=== PATIENT | female | born 1965 | race Caucasian/White ===

== ENCOUNTER 2021-06-17 10:36 | Inpatient (IN) | payer BC, OTHER ==
[2021-06-17] MEDS ORDERED: Sodium Chloride 0.9% 2.5 ML Syringe FLUSH PRN (10:41)
[2021-06-17] MEDS ORDERED: Sodium Chloride 0.9% 10 ML Syringe FLUSH PRN (10:41)
[2021-06-17] MEDS ORDERED: Albuterol/Ipratropium 3.0-0.5 MG/3 ML Neb Soln NEB ONE ×5 (10:44→14:49)
--- NOTE | 2021-06-17 10:58 | PCM.EKG ---
#1 Interpretation EKG Date: 06/17/21 Time: 10:48 Rhythm: NSR Rate (Beats/Min): 103 [place]: Normal P-Wave: Present QRS: Normal ST-T: Normal QT: Normal [place]/PQ Interval: 189 EKG Interpretation Comments: sinus tachycardia, no acute ischemic changes
[2021-06-17] MEDS ORDERED: Dexamethasone 10 MG/ML SDV IVPUSH ONE (11:06)
[2021-06-17] MEDS ORDERED: Magnesium Sulfate (4.06 MEQ/ML) 5 GM/10 ML SDV IV STA (11:12)
[2021-06-17 11:16] LABS: BLOOD UREA NITROGEN,BUN 22 mg/dL (7.0-18.0); CARBON DIOXIDE,CO2 28.7 mmol/L (21.0-32.0); CHLORIDE,CL 99 mmol/L (98-107); GLUCOSE RANDOM 146 mg/dL (74-106); LIPASE 15 U/L (73-393); POTASSIUM,K 3.7 mmol/L (3.5-5.1); SODIUM,NA 137 mmol/L (136-145)
[2021-06-17] MEDS ORDERED: Magnesium Sulfate/Water 2 GM in Premix Bag 1 BAG IV ONE (11:45)
--- NOTE | 2021-06-17 12:21 | EDM.PDOC ---
ED HPI GENERAL MEDICAL PROBLEM - General Chief Complaint: Respiratory Problem Stated Complaint: WHEEZING SOB Time Seen by Provider: 06/17/21 10:41 Source of Information: Reports: Patient History Limitations: Reports: No Limitations - History of Present Illness INITIAL COMMENTS - FREE TEXT/NARRATIVE: HISTORY AND PHYSICAL: History of present illness: Patient is a 55-year-old female, with a history of asthma, hypertension, and obesity, who presents emergency room today with concern of shortness of breath and cough x2 days. Patient states that starting last night, her cough was more significant leading her to be more short of breath today. Patient states that she did have a negative Covid test rapid when symptoms first started but states that she is still waiting for the state send out to result. Patient states that her chest feels tight like she cannot take a deep breath in and similar to past asthma exacerbations. Patient states she has not taken anything for her symptoms and denies any other symptoms or concerns. Patient is vaccinated for COVID-19 with [place] and has received both doses. Patient denies fever, chills, chest pain. Denies headache, neck stiff ness, change in vision, syncope, or near syncope. Denies nausea, vomiting, abdominal pain, diarrhea, constipation, or dysuria. Has not noted any blood in urine or stool. Patient has been eating and drinking appropriately. Review of systems: As per history of present illness and below otherwise all systems reviewed and negative. Past medical history: As per history of present illness and as reviewed below otherwise noncontributory. Surgical history: As per history of present illness and as reviewed below otherwise noncontributory. Social history: See social history for further information Family history: As per history of present illness and as reviewed below otherwise noncontributory. Physical exam: General: Patient is alert, oriented, and in no acute distress. Patient laying on exam table, patient is in moderate respiratory distress with a respiratory rate of 26, oxygen on room air 82%, and tachycardic 110s on exam, afebrile.. HEENT: Atraumatic, normocephalic, pupils equal and reactive bilaterally, negative for conjunctival pallor or scleral icterus, mucous membranes moist, throat clear, neck supple, nontender, trachea midline. No drooling or trismus noted. No meningeal signs. No hot potato voice noted. Lungs: Decreased air exchange bilaterally to auscultation, breath sounds equal bilaterally, chest nontender. Patient speaking 3-4 words with breathlessness, no wheezing or stridor, accessory muscle use with moderate respiratory distress. Heart: S1S2, regular rate and rhythm without overt murmur Abdomen: Soft, nondistended, nontender. Negative for masses or hep atosplenomegaly. Negative for costovertebral tenderness. Pelvis: Stable nontender. Genitourinary: Deferred. Rectal: Deferred. Skin: Intact, warm, dry. No lesions or rashes noted. Extremities: Atraumatic, negative for cords or calf pain. Neurovascular unremarkable. Neuro: Awake, alert, oriented. Cranial nerves II through XII unremarkable. Cerebellum unremarkable. Motor and sensory unremarkable throughout. Exam nonfocal. Notes: Patient is a 55-year-old female, with a history of asthma, hypertension, and obesity, who presents emergency room secondary to cough and worsening shortness of breath x2 days. Upon arrival to the ED, patient is in moderate respiratory distress with an increased respiratory rate of 26 with hypoxia on room air of 82 and tachycardic 110s on exam. Patient was quickly transitioned over to 5 L nasal cannula and satting about 92%. Patient does have decreased air exchange bilaterally without wheezing or stridor and is speaking 3-4 words with breathlessness on exam and a sensory muscle use. DuoNeb initiated immediately upon arrival to the ED. We will also provide a dose of steroid, obtain cardiac evaluation, and closely reassess patient. Following continuous DuoNeb, patient has improvement of his oxygenation about 93% on 5 L nasal cannula. Patient's respiratory rate has improved to about 20, and tachycardia has resolved to the 90s. See Dr. Hayes's dictation for specific EKG interpretation. However, sinus tachycardia with a rate of 103 without STEMI. CBC remarkable for an elevated white blood cell count at 15.14, otherwise mild derangements of CBC are unremarkable. CMP shows an isolated BUN of 22 and glucose mildly elevated at 146, otherwise mild derangements of CMP unremarkable. Troponin negative. Lactic within normal limits. Pending blood cultures x2. Influenza negative. COVID19 negative. Ddimer elevated 0.77. ABG shows pH WNL at 7.44 with normal CO2 at 40, bicarb mildly elevated at 27, O2 at 62. Repeat trop negative. Ang CT chest shows contrast bolus is not diagnostic for pulmonary embolism. There is no evidence for right heart strain. No pulmonary infarct. There is no thoracic lymphadenopathy or acute airspace disease. Surgical changes in the upper abdomen compatible with prior gastric bypass. Heavily calcified left anterior descending coronary artery. All incidental findings of imaging today discussed with patient importance to have his follow-up with a primary care provider at a later date. Upon reevaluation of patient, she is breathing comfortably throughout remainder of stay in emergency room and approximately 93% on 4 to 5 L nasal cannula. Her respiratory rate has improved to 19-20 and heart rate remains within normal limits. After thorough conversation with patient, she has had significant asthma exacerbations in the past and states that she has had to be admitted but that has not had happen in quite some time. I did call and speak to the hospitalist on-call, Dr. Christie, and thoroughly dis cussed patient's case. Will admit to inpatient on telemetry. Voices understanding and is agreeable to plan of care. Denies any further questions or concerns at this time. Diagnostics: EKG, CBC, CMP, UA, troponin, Ang CT Chest, COVID/Flu, ABG, delta trop Therapeutics: DuoNeb x3, Decadron, magnesium Impression: Acute asthma exacerbation with hypoxia Plan: Admit to inpatient to Dr. Christie on telemetry Definitive disposition and diagnosis as appropriate pending reevaluation and review of above. throat Pain Score (Numeric/FACES): 2 - Related Data Allergies Allergy/AdvReac Type Severity Reaction Status Date / Time strawberry Allergy Severe Bronchospas Verified 06/17/21 10:43 ms Penicillins Allergy Edema Verified 06/17/21 10:43 IBUPROFEN Allergy Shortness Uncoded 06/17/21 10:43 of Breath Home Meds: Home Meds Albuterol Sulfate [Albuterol Sulfate HFA] 2 inh IH QID PRN 01/13/15 [History] Escitalopram [Lexapro] 20 mg PO DAILY 01/13/15 [History] Irbesartan 300 mg PO DAILY 01/13/15 [History] Loratadine 10 mg PO DAILY 01/13/15 [History] Mometasone/Formoterol [Dulera 200 MCG/5 MCG] 2 puff INH BID 01/13/15 [History] Mometasone/Formoterol [Dulera 200-5 MCG] 2 puff IH BIDRT 01/13/15 [History] Multivitamin [Daily Vitamin] 1 each PO DAILY 01/13/15 [History] Ranitidine [Zantac] 150 mg PO BID 01/13/15 [History] Verapamil HCl [Verapamil ER] 360 mg PO BEDTIME 01/13/15 [History] hydroCHLOROthiazide [Hydrochlorothiazide] 25 mg PO DAILY 01/13/15 [History] Miconazole Nitrate [Lotrimin AF] 90 gm TP BID #1 powder 01/15/15 [Rx] Sulfamethoxazole/Trimethoprim [Bactrim Ds Tablet] 1 each PO BID #10 tablet 01/15/15 [Rx] Past Medical History HEENT History: Reports: None Cardiovascular History: Reports: Hypertension Respiratory History: Reports: Asthma Gastrointestinal History: Reports: None Genitourinary History: Reports: None 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 Musculoskeletal History: Reports: None Neurological History: Reports: None Psychiatric History: Reports: None Endocrine/Metabolic History: Reports: None Hematologic History: Reports: None Immunologic History: Reports: None Oncologic (Cancer) History: Reports: None Dermatologic History: Reports: None - Infectious Disease History Infectious Disease History: Reports: None - Past Surgical History Head Surgeries/Procedures: Reports: None Social & Family History - Family History Family Medical History: No Pertinent Family History - Tobacco Use Tobacco Use Status *Q: Never Tobacco User Second Hand Smoke Exposure: No - Caffeine Use Caffeine Use: Reports: None - Recreational Drug Use Recreational Drug Use: No ED ROS GENERAL - Review of Systems Review Of Systems: Comprehensive ROS is negative, except as noted in HPI. ED EXAM, GENERAL - Physical Exam Exam: See Below (see dictation) Course - Vital Signs Last Recorded V/S: Last Vital Signs Temp 98.2 F 06/17/21 11:38 Pulse 96 06/17/21 15:50 Resp 18 06/17/21 15:50 BP 118/72 06/17/21 15:50 Pulse Ox 98 06/17/21 15:50 - Orders/Labs/Meds Orders: Active Orders 24 hr Category Date Time Status Cardiac Monitoring [RC] . DIRECTED Care 06/17/21 10:41 Active RT Aerosol Therapy [RC] ASDIRECTED Care 06/17/21 10:44 Active RT Aerosol Therapy [RC] ASDIRECTED Care 06/17/21 10:47 Active RT Aerosol Therapy [RC] ASDIRECTED Care 06/17/21 10:47 Active RT Aerosol Therapy [RC] ASDIRECTED Care 06/17/21 10:47 Active RT Aerosol Therapy [RC] ASDIRECTED Care 06/17/21 14:49 Active CULTURE BLOOD [BC] Stat Lab 06/17/21 11:25 Received CULTURE BLOOD [BC] Stat Lab 06/17/21 11:30 Results Sodium Chloride 0.9% [Saline Flush] Med 06/17/21 10:41 Active 10 ml FLUSH ASDIRECTED PRN Sodium Chloride 0.9% [Saline Flush] Med 06/17/21 10:41 Active 2.5 ml FLUSH ASDIRECTED PRN Blood Culture x2 Reflex Set [OM.PC] Stat Oth 06/17/21 11:14 Ordered Saline Lock Insert [OM.PC] Stat Ot 06/17/21 10:41 Ordered Medication Orders Sodium Chloride (Sodium Chloride 0.9% 2.5 Ml Syringe) 2.5 ml FLUSH ASDIRECTED PRN PRN Reason: Keep Vein Open Last Admin: 06/17/21 11:07 Dose: 2.5 ml Documented by: JOSELYN Sodium Chloride (Sodium Chloride 0.9% 10 Ml Syringe) 10 ml FLUSH ASDIRECTED PRN PRN Reason: Keep Vein Open Last Admin: 06/17/21 11:07 Dose: 10 ml Documented by: JOSELYN Labs: Laboratory Tests 06/17/21 06/17/21 06/17/21 Range/Units 10:45 10:45 10:45 WBC 15.14 H (4.0-11.0) K/uL RBC 4.91 (4.30-5.90) M/uL Hgb 13.0 (12.0-16.0) g/dL Hct 40.2 (36.0-46.0) % MCV 81.9 (80.0-98.0) fL MCH 26.5 L (27.0-32.0) pg MCHC 32.3 (31.0-37.0) g/dL RDW Std Deviation 50.6 (28.0-62.0) fl RDW Coeff of [place] 17 H (11.0-15.0) % Plt Count 293 (150-400) K/uL MPV 10.80 (7.40-12.00) fL Neut % (Auto) 89.0 H (48.0-80.0) % Lymph % (Auto) 5.1 L (16.0-40.0) % [place] % (Auto) 4.7 (0.0-15.0) % Eos % (Auto) 0.9 (0.0-7.0) % Baso % (Auto) 0.3 (0.0-1.5) % Neut # (Auto) 13.5 H (1.4-5.7) K/uL Lymph # (Auto) 0.8 (0.6-2.4) K/uL [place] # (Auto) 0.7 (0.0-0.8) K/uL Eos # (Auto) 0.1 (0.0-0.7) K/uL Baso # (Auto) 0.0 (0.0-0.1) K/uL Nucleated RBC % 0.0 /100WBC Nucleated RBCs # 0 K/uL D-Dimer, Quantitative 0.77 H (0.0-0.50) mg/L FEU ABG pH (7.35-7.45) ABG pCO2 (35-45) mmHG ABG pO2 (80-105) mmHG ABG HCO3 (22-26) mEq/L ABG Total CO2 (23-27) mmol/L ABG Base Excess (-2.0-3.0) Sodium 137 (136-145) mmol/L Potassium 3.7 (3.5-5.1) mmol/L Chloride 99 (98-107) mmol/L Carbon Dioxide 28.7 (21.0-32.0) mmol/L BUN 22 H (7.0-18.0) mg/dL Creatinine 0.9 (0.6-1.0) mg/dL Est Cr Clr Drug Dosing 67.87 mL/min Estimated GFR (MDRD) > 60.0 ml/min Glucose 146 H (74-106) mg/dL Lactic Acid (0.4-2.0) mmol/L Calcium 8.7 (8.5-10.1) mg/dL Total Bilirubin 0.9 (0.2-1.0) mg/dL AST 16 (15-37) IU/L ALT 25 (14-63) IU/L Alkaline Phosphatase 120 H (46-116) U/L Troponin I < 0.050 (0.000-0.056) ng/mL Total Protein 8.0 (6.4-8.2) g/dL Albumin 3.9 (3.4-5.0) g/dL Globulin 4.1 H (2.6-4.0) g/dL Albumin/Globulin Ratio 1.0 (0.9-1.6) Lipase 15 L (73-393) U/L SARS-CoV-2 RNA (BALA) (NEGATIVE) 06/17/21 06/17/21 06/17/21 Range/Units 11:21 11:25 13:05 WBC (4.0-11.0) K/uL RBC (4.30-5.90) M/uL Hgb (12.0-16.0) g/dL Hct (36.0-46.0) % MCV (80.0-98.0) fL MCH (27.0-32.0) pg MCHC (31.0-37.0) g/dL RDW Std Deviation (28.0-62.0) fl RDW Coeff of [place] (11.0-15.0) % Plt Count (150-400) K/uL MPV (7.40-12.00) fL Neut % (Auto) (48.0-80.0) % Lymph % (Auto) (16.0-40.0) % [place] % (Auto) (0.0-15.0) % Eos % (Auto) (0.0-7.0) % Baso % (Auto) (0.0-1.5) % Neut # (Auto) (1.4-5.7) K/uL Lymph # (Auto) (0.6-2.4) K/uL [place] # (Auto) (0.0-0.8) K/uL Eos # (Auto) (0.0-0.7) K/uL Baso # (Auto) (0.0-0.1) K/uL Nucleated RBC % /100WBC Nucleated RBCs # K/uL D-Dimer, Quantitative (0.0-0.50) mg/L FEU ABG pH 7.44 (7.35-7.45) ABG pCO2 40 (35-45) mmHG ABG pO2 62 L (80-105) mmHG ABG HCO3 27 H (22-26) mEq/L ABG Total CO2 24.3 (23-27) mmol/L ABG Base Excess 2.6 (-2.0-3.0) Sodium (136-145) mmol/L Potassium (3.5-5.1) mmol/L Chloride (98-107) mmol/L Carbon Dioxide (21.0-32.0) mmol/L BUN (7.0-18.0) mg/dL Creatinine (0.6-1.0) mg/dL Est Cr Clr Drug Dosing mL/min Estimated GFR (MDRD) ml/min Glucose (74-106) mg/dL Lactic Acid 1.6 (0.4-2.0) mmol/L Calcium (8.5-10.1) mg/dL Total Bilirubin (0.2-1.0) mg/dL AST (15-37) IU/L ALT (14-63) IU/L Alkaline Phosphatase (46-116) U/L Troponin I (0.000-0.056) ng/mL Total Protein (6.4-8.2) g/dL Albumin (3.4-5.0) g/dL Globulin (2.6-4.0) g/dL Albumin/Globulin Ratio (0.9-1.6) Lipase (73-393) U/L SARS-CoV-2 RNA (BALA) NEGATIVE (NEGATIVE) 06/17/21 Range/Units 15:00 WBC (4.0-11.0) K/uL RBC (4.30-5.90) M/uL Hgb (12.0-16.0) g/dL Hct (36.0-46.0) % MCV (80.0-98.0) fL MCH (27.0-32.0) pg MCHC (31.0-37.0) g/dL RDW Std Deviation (28.0-62.0) fl RDW Coeff of [place] (11.0-15.0) % Plt Count (150-400) K/uL MPV (7.40-12.00) fL Neut % (Auto) (48.0-80.0) % Lymph % (Auto) (16.0-40.0) % [place] % (Auto) (0.0-15.0) % Eos % (Auto) (0.0-7.0) % Baso % (Auto) (0.0-1.5) % Neut # (Auto) (1.4-5.7) K/uL Lymph # (Auto) (0.6-2.4) K/uL [place] # (Auto) (0.0-0.8) K/uL Eos # (Auto) (0.0-0.7) K/uL Baso # (Auto) (0.0-0.1) K/uL Nucleated RBC % /100WBC Nucleated RBCs # K/uL D-Dimer, Quantitative (0.0-0.50) mg/L FEU ABG pH (7.35-7.45) ABG pCO2 (35-45) mmHG ABG pO2 (80-105) mmHG ABG HCO3 (22-26) mEq/L ABG Total CO2 (23-27) mmol/L ABG Base Excess (-2.0-3.0) Sodium (136-145) mmol/L Potassium (3.5-5.1) mmol/L Chloride (98-107) mmol/L Carbon Dioxide (21.0-32.0) mmol/L BUN (7.0-18.0) mg/dL Creatinine (0.6-1.0) mg/dL Est Cr Clr Drug Dosing mL/min Estimated GFR (MDRD) ml/min Glucose (74-106) mg/dL Lactic Acid (0.4-2.0) mmol/L Calcium (8.5-10.1) mg/dL Total Bilirubin (0.2-1.0) mg/dL AST (15-37) IU/L ALT (14-63) IU/L Alkaline Phosphatase (46-116) U/L Troponin I < 0.050 (0.000-0.056) ng/mL Total Protein (6.4-8.2) g/dL Albumin (3.4-5.0) g/dL Globulin (2.6-4.0) g/dL Albumin/Globulin Ratio (0.9-1.6) Lipase (73-393) U/L SARS-CoV-2 RNA (BALA) (NEGATIVE) Meds: Medications Generic Name Dose Route Start Last Admin Trade Name Freq PRN Reason Stop Dose Admin Sodium Chloride 2.5 ml 06/17/21 10:41 06/17/21 11:07 Sodium Chloride 0.9% 2.5 Ml Syringe FLUSH 2.5 ml ASDIRECTED PRN Administration Keep Vein Open Sodium Chloride 10 ml 06/17/21 10:41 06/17/21 11:07 Sodium Chloride 0.9% 10 Ml Syringe FLUSH 10 ml ASDIRECTED PRN Administration Keep Vein Open Discontinued Medications Generic Name Dose Route Start Last Admin Trade Name Freq PRN Reason Stop Dose Admin Albuterol/Ipratropium 3 ml 06/17/21 10:44 06/17/21 11:01 Albuterol/Ipratropium 3.0-0.5 Mg/3 Ml Neb Soln NEB 06/17/21 10:45 Not Given ONETIME ONE Albuterol/Ipratropium 3 ml 06/17/21 10:47 06/17/21 11:07 Albuterol/Ipratropium 3.0-0.5 Mg/3 Ml Neb Soln NEB 06/17/21 10:48 3 ml ONETIME ONE Administration Albuterol/Ipratropium 3 ml 06/17/21 10:47 06/17/21 11:07 Albuterol/Ipratropium 3.0-0.5 Mg/3 Ml Neb Soln NEB 06/17/21 10:48 3 ml ONETIME ONE Administration Albuterol/Ipratropium 3 ml 06/17/21 10:47 06/17/21 11:07 Albuterol/Ipratropium 3.0-0.5 Mg/3 Ml Neb Soln NEB 06/17/21 10:48 3 ml ONETIME ONE Administration Albuterol/Ipratropium 3 ml 06/17/21 14:49 06/17/21 15:15 Albuterol/Ipratropium 3.0-0.5 Mg/3 Ml Neb Soln NEB 06/17/21 14:50 3 ml ONETIME ONE Administration Dexamethasone 10 mg 06/17/21 11:06 06/17/21 11:22 Dexamethasone 10 Mg/Ml Sdv IVPUSH 06/17/21 11:07 10 mg ONETIME ONE Administration Magnesium Sulfate 2 gm/ Premix 50 mls @ 50 mls/hr 06/17/21 11:45 06/17/21 11:40 IV 06/17/21 12:44 50 mls/hr ONETIME ONE Administration Iopamidol 100 ml 06/17/21 15:05 06/17/21 15:06 Iopamidol 755 Mg/Ml 500 Ml Multipack Bottle IVPUSH 06/17/21 15:06 100 ml ONETIME STA Administration Departure - Departure Time of Disposition: 16:38 Disposition: Admitted As Inpatient 65 Clinical Impression: Hypoxia Asthma exacerbation Qualifiers: Asthma severity: moderate Asthma persistence: unspecified Qualified Code(s): J45.901 - Unspecified asthma with (acute) exacerbation - Discharge Information Sepsis Event Note (ED) - Focused Exam Vital Signs: Vital Signs Temp Pulse Resp BP Pulse Ox 06/17/21 15:50 96 18 118/72 98 06/17/21 15:13 98 20 93 L 06/17/21 14:30 100 18 128/71 94 L 06/17/21 13:51 88 20 130/74 94 L 06/17/21 13:08 55 L 18 156/43 H 94 L 06/17/21 12:40 60 18 144/73 H 94 L 06/17/21 11:38 98.2 F 98 20 158/73 H 94 L 06/17/21 10:40 101 H 20 158/72 H 94 L 06/17/21 10:38 97.8 F 101 H 26 H 174/101 H 82 L - My Orders Last 24 Hours: My Active Orders 06/17/21 10:41 Cardiac Monitoring [RC] . DIRECTED Sodium Chloride 0.9% [Saline Flush] 10 ml FLUSH ASDIRECTED PRN Sodium Chloride 0.9% [Saline Flush] 2.5 ml FLUSH ASDIRECTED PRN Saline Lock Insert [OM.PC] Stat 06/17/21 10:44 RT Aerosol Therapy [RC] ASDIRECTED 06/17/21 10:47 RT Aerosol Therapy [RC] ASDIRECTED RT Aerosol Therapy [RC] ASDIRECTED RT Aerosol Therapy [RC] ASDIRECTED 06/17/21 11:14 Blood Culture x2 Reflex Set [OM.PC] Stat 06/17/21 11:25 CULTURE BLOOD [BC] Stat 06/17/21 11:30 CULTURE BLOOD [BC] Stat 06/17/21 14:49 RT Aerosol Therapy [RC] ASDIRECTED - Assessment/Plan Last 24 Hours: My Active Orders 06/17/21 10:41 Cardiac Monitoring [RC] . DIRECTED Sodium Chloride 0.9% [Saline Flush] 10 ml FLUSH ASDIRECTED PRN Sodium Chloride 0.9% [Saline Flush] 2.5 ml FLUSH ASDIRECTED PRN Saline Lock Insert [OM.PC] Stat 06/17/21 10:44 RT Aerosol Therapy [RC] ASDIRECTED 06/17/21 10:47 RT Aerosol Therapy [RC] ASDIRECTED RT Aerosol Therapy [RC] ASDIRECTED RT Aerosol Therapy [RC] ASDIRECTED 06/17/21 11:14 Blood Culture x2 Reflex Set [OM.PC] Stat 06/17/21 11:25 CULTURE BLOOD [BC] Stat 06/17/21 11:30 CULTURE BLOOD [BC] Stat 06/17/21 14:49 RT Aerosol Therapy [RC] ASDIRECTED
--- NOTE | 2021-06-17 14:38 | CT ---
HISTORY: Hypoxia. Shortness of breath. COMPARISON: None. TECHNIQUE: CT pulmonary angiogram. Coronal/sagittal reconstruction images. 100 cc of [id number] IV. FINDINGS: There is no mass at the thoracic inlet. There is no pleural or pericardial effusion. The main pulmonary artery and thoracic aorta are normal in caliber. The contrast bolus is not adequate for PE interpretation. Main pulmonary artery measures 85 Hounsfield units. Typically, for a diagnostic quality pulmonary CTA, main pulmonary artery should exceed 250 Hounsfield units. No findings for right heart strain. No thoracic aortic dissection flap or intramural hematoma. Heavily calcified left anterior descending epicardial coronary artery. There is no pleural or pericardial effusion. There is no mass at the thoracic inlet. The lung windows demonstrate no endobronchial mass. There is no bronchiectasis. There is no architectural distortion. There is no honeycomb formation. There is no suspicious pulmonary nodule. There is no acute airspace disease. There is no pneumothorax. There is linear atelectasis in the right middle lobe. Evaluation of the upper abdomen demonstrates a non cirrhotic liver morphology. No radiopaque gallstone. No perihepatic ascites. No splenomegaly. No adrenal mass. The superior poles the kidneys are within normal limits. Postoperative changes consist with a prior gastric bypass. The proximal [place] limb appears normal in caliber. The bone windows demonstrate degenerative disc disease. There are no suspicious bone lesions by CT. The vertebral body heights are maintained on sagittal reconstruction images. Manubrium and body of the sternum are intact. IMPRESSION: 1. Contrast bolus is not diagnostic for pulmonary emboli interpretation. 2. There is no evidence for right heart strain. No pulmonary infarct. 3. There is no thoracic lymphadenopathy or acute airspace disease. 4. Surgical changes in the upper abdomen compatible with a prior gastric bypass. 5. Heavily calcified left anterior descending coronary artery. Please note that all CT scans at this facility use dose modulation, iterative reconstruction, and/or weight-based dosing when appropriate to reduce radiation dose to as low as reasonably achievable. Dictated by Christopher Harmon MD @ 06/17/2021 2:37:28 PM (Electronically Signed)
[2021-06-17] MEDS ORDERED: Iopamidol 755 MG/ML 500 ML Multipack Bottle IVPUSH STA (15:05)
[2021-06-17] MEDS ORDERED: Ondansetron 4 MG/2 ML SDV IVPUSH PRN (17:31)
[2021-06-17] MEDS ORDERED: Acetaminophen 325 MG Tab PO PRN (17:31)
[2021-06-17] MEDS ORDERED: guaiFENesin/Dextromethorphan 100-10 MG/5 ML Soln 10 ML Cup PO PRN (17:37)
--- NOTE | 2021-06-17 17:39 | PCM.HP.2 ---
H&P History of Present Illness - General Date of Service: 06/17/21 Admit Problem/Dx: Admission Diagnosis/Problem Admission Diagnosis/Problem Asthma - History of Present Illness Initial Comments - Free Text/Narative: Patient is a 55-year-old female, with a history of asthma, hypertension, and obesity, who presents emergency room today with concern of shortness of breath and cough x2 days. 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 Her Covid test was negative but last night her cough and shortness of breath got significantly worse. Patient states that her chest feels tight like she cannot take a deep breath in and similar to past asthma exacerbations. Patient states she has not taken anything for her symptoms and denies any other symptoms or concerns. Patient is vaccinated for COVID-19 with Moderna and has received both doses. Upon arrival to the ED, patient is in moderate respiratory distress with an increased respiratory rate of 26 with hypoxia on room air of 82 and tachycardic 110s on exam. Patient was quickly transitioned over to 5 L nasal cannula and satting about 92%. cont DuoNeb initiated immediately upon arrival to the ED. Also received a dose of steroid, and IV mag. Following continuous DuoNeb, patient has improvement of his oxygenation about 93% on 5 L nasal cannula. Patient's respiratory rate improved to about 20, and tachycardia has resolved to the 90s. EKG sinus tachycardia with a rate of 103 without STEMI. CBC remarkable for an elevated white blood cell count at 15.14, otherwise mild derangements of CBC are unremarkable. CMP shows an isolated BUN of 22 and glucose mildly elevated at 146, otherwise mild derangements of CMP unremarkable. Troponin negativex2. Lactic within normal limits. Pending blood cultures x2. Influenza negative. COVID19 negative. Ddimer elevated 0.77. ABG shows pH WNL at 7.44 with normal CO2 at 40, bicarb mildly elevated at 27, O2 at 62. Repeat trop negative. Ang CT chest shows contrast bolus is not diagnostic for pulmonary embolism. There is no evidence for right heart strain. No pulmonary infarct. There is no thoracic lymphadenopathy or acute airspace disease. Surgical changes in the upper abdomen compatible with prior gastric bypass. Heavily calcified left anterior descending coronary artery. All incidental findings of imaging today discussed with patient importance to have his follow-up with a primary care provider at a later date. Patient currently sees a physician via telemedicine due to the ongoing pandemic. Upon reevaluation of patient, she is breathing comfortably throughout remainder of stay in emergency room and approximately 93% on 4 to 5 L nasal cannula. Her respiratory rate has improved to 19-20 and heart rate remains within normal limits. Patient states that she was diagnosed with asthma about 10 years ago under formal pulmonary function tests. Patient states that she was diagnosed based on her symptoms by her primary care doctor and does not see a catalog library assistant. Patient states that she has never been hospitalized or intubated due to her asthma but has had few ER visits which resolved with some breathing treatments. Patient does not take any maintenance medications for her asthma. Patient was admitted to the hospital for further management of hypoxic respiratory failure secondary to asthma exacerbation. throat Pain Score (Numeric/FACES): 2 - Related Data Allergies/Adverse Reactions: Allergies Allergy/AdvReac Type Severity Reaction Status Date / Time strawberry Allergy Severe Bronchospas Verified 06/17/21 17:01 ms Penicillins Allergy Edema Verified 06/17/21 17:01 IBUPROFEN Allergy Shortness Uncoded 06/17/21 17:01 of Breath Home Medications: Home Meds Albuterol Sulfate [Albuterol Sulfate HFA] 2 inh IH QID PRN 01/13/15 [History] Escitalopram [Lexapro] 20 mg PO DAILY 01/13/15 [History] Irbesartan 150 mg PO DAILY 01/13/15 [History] Loratadine 10 mg PO DAILY 01/13/15 [History] Multivitamin [Daily Vitamin] 1 each PO DAILY 01/13/15 [History] hydroCHLOROthiazide [Hydrochlorothiazide] 25 mg PO DAILY 01/13/15 [History] Omeprazole 20 mg PO DAILY 06/17/21 [History] Past Medical History HEENT History: Reports: None Cardiovascular History: Reports: Hypertension Respiratory History: Reports: Asthma Gastrointestinal History: Reports: None Genitourinary History: Reports: None [employer] History: Reports: Musculoskeletal History: Reports: None Neurological History: Reports: None Psychiatric History: Reports: Anxiety, Depression Endocrine/Metabolic History: Reports: None Hematologic History: Reports: None Immunologic History: Reports: None Oncologic (Cancer) History: Reports: None Dermatologic History: Reports: Cellulitis - Infectious Disease History Infectious Disease History: Reports: None - Past Surgical History Head Surgeries/Procedures: Reports: None GI Surgical History: Reports: Other (See Below) Other GI Surgeries/Procedures: gastric bypass surgery Social & Family History - Family History Family Medical History: No Pertinent Family History - Tobacco Use Tobacco Use Status *Q: Former Tobacco User Years of Tobacco use: 25 Used Tobacco, but Quit: Yes Month/Year Tobacco Last Used: 1995 Second Hand Smoke Exposure: No - Caffeine Use Caffeine Use: Reports: Soda - Recreational Drug Use Recreational Drug Use: No H&P Review of Systems - Review of Systems: Review Of Systems: See Below General: Reports: Malaise, Fatigue. Denies: Fever, Chills, Weakness Pulmonary: Reports: Shortness of Breath, Wheezing, Cough, Sputum. Denies: Pleuritic Chest Pain Cardiovascular: Reports: Dyspnea on Exertion. Denies: Chest Pain, Palpitations, Orthopnea Gastrointestinal: Denies: Abdominal Pain, Anorexia, Black Stool, Nausea, Vomiting Genitourinary: Denies: Frequency, Burning, Pain, Urgency, Incontinence, Hematuria, Retention Musculoskeletal: Denies: Neck Pain, Shoulder Pain, Arm Pain Skin: Denies: Cyanosis, Jaundice, Mottled Psychiatric: Denies: Confusion, Depression, Mood Lability Exam - Exam Exam: See Below - Vital Signs Vital Signs: Last Vital Signs Temp 35.7 C L 06/17/21 16:34 Pulse 100 06/17/21 16:34 Resp 20 06/17/21 16:34 BP 131/71 06/17/21 16:34 Pulse Ox 94 L 06/17/21 16:34 Weight: 185.519 kg - Exam Quality Assessment: Supplemental Oxygen Neck: Supple, Trachea Midline Lungs: Normal Respiratory Effort, Decreased Breath Sounds, Wheezing. No: Crackles Cardiovascular: Regular Rate, Regular Rhythm, Normal S1, Normal S2 GI/Abdominal Exam: Normal Bowel Sounds, Soft, Non-Tender Extremities: Normal Inspection, Normal Range of Motion, No Pedal Edema, Pallor. No: Ivory's Sign, Leg Pain, Limited Range of Motion, Increased Warmth, Mottled, Redness - Patient Data Lab Results Last 24 hrs: Laboratory Results - last 24 hr 06/17/21 06/17/21 06/17/21 Range/Units 10:45 10:45 10:45 WBC 15.14 H (4.0-11.0) K/uL RBC 4.91 (4.30-5.90) M/uL Hgb 13.0 (12.0-16.0) g/dL Hct 40.2 (36.0-46.0) % MCV 81.9 (80.0-98.0) fL MCH 26.5 L (27.0-32.0) pg MCHC 32.3 (31.0-37.0) g/dL RDW Std Deviation 50.6 (28.0-62.0) fl RDW Coeff of [place] 17 H (11.0-15.0) % Plt Count 293 (150-400) K/uL MPV 10.80 (7.40-12.00) fL Neut % (Auto) 89.0 H (48.0-80.0) % Lymph % (Auto) 5.1 L (16.0-40.0) % [place] % (Auto) 4.7 (0.0-15.0) % Eos % (Auto) 0.9 (0.0-7.0) % Baso % (Auto) 0.3 (0.0-1.5) % Neut # (Auto) 13.5 H (1.4-5.7) K/uL Lymph # (Auto) 0.8 (0.6-2.4) K/uL [place] # (Auto) 0.7 (0.0-0.8) K/uL Eos # (Auto) 0.1 (0.0-0.7) K/uL Baso # (Auto) 0.0 (0.0-0.1) K/uL Nucleated RBC % 0.0 /100WBC Nucleated RBCs # 0 K/uL D-Dimer, Quantitative 0.77 H (0.0-0.50) mg/L FEU ABG pH (7.35-7.45) ABG pCO2 (35-45) mmHG ABG pO2 (80-105) mmHG ABG HCO3 (22-26) mEq/L ABG Total CO2 (23-27) mmol/L ABG Base Excess (-2.0-3.0) Sodium 137 (136-145) mmol/L Potassium 3.7 (3.5-5.1) mmol/L Chloride 99 (98-107) mmol/L Carbon Dioxide 28.7 (21.0-32.0) mmol/L BUN 22 H (7.0-18.0) mg/dL Creatinine 0.9 (0.6-1.0) mg/dL Est Cr Clr Drug Dosing 67.87 mL/min Estimated GFR (MDRD) > 60.0 ml/min Glucose 146 H (74-106) mg/dL Lactic Acid (0.4-2.0) mmol/L Calcium 8.7 (8.5-10.1) mg/dL Total Bilirubin 0.9 (0.2-1.0) mg/dL AST 16 (15-37) IU/L ALT 25 (14-63) IU/L Alkaline Phosphatase 120 H (46-116) U/L Troponin I < 0.050 (0.000-0.056) ng/mL Total Protein 8.0 (6.4-8.2) g/dL Albumin 3.9 (3.4-5.0) g/dL Globulin 4.1 H (2.6-4.0) g/dL Albumin/Globulin Ratio 1.0 (0.9-1.6) Lipase 15 L (73-393) U/L SARS-CoV-2 RNA (BALA) (NEGATIVE) 06/17/21 06/17/21 06/17/21 Range/Units 11:21 11:25 13:05 WBC (4.0-11.0) K/uL RBC (4.30-5.90) M/uL Hgb (12.0-16.0) g/dL Hct (36.0-46.0) % MCV (80.0-98.0) fL MCH (27.0-32.0) pg MCHC (31.0-37.0) g/dL RDW Std Deviation (28.0-62.0) fl RDW Coeff of [place] (11.0-15.0) % Plt Count (150-400) K/uL MPV (7.40-12.00) fL Neut % (Auto) (48.0-80.0) % Lymph % (Auto) (16.0-40.0) % [place] % (Auto) (0.0-15.0) % Eos % (Auto) (0.0-7.0) % Baso % (Auto) (0.0-1.5) % Neut # (Auto) (1.4-5.7) K/uL Lymph # (Auto) (0.6-2.4) K/uL [place] # (Auto) (0.0-0.8) K/uL Eos # (Auto) (0.0-0.7) K/uL Baso # (Auto) (0.0-0.1) K/uL Nucleated RBC % /100WBC Nucleated RBCs # K/uL D-Dimer, Quantitative (0.0-0.50) mg/L FEU ABG pH 7.44 (7.35-7.45) ABG pCO2 40 (35-45) mmHG ABG pO2 62 L (80-105) mmHG ABG HCO3 27 H (22-26) mEq/L ABG Total CO2 24.3 (23-27) mmol/L ABG Base Excess 2.6 (-2.0-3.0) Sodium (136-145) mmol/L Potassium (3.5-5.1) mmol/L Chloride (98-107) mmol/L Carbon Dioxide (21.0-32.0) mmol/L BUN (7.0-18.0) mg/dL Creatinine (0.6-1.0) mg/dL Est Cr Clr Drug Dosing mL/min Estimated GFR (MDRD) ml/min Glucose (74-106) mg/dL Lactic Acid 1.6 (0.4-2.0) mmol/L Calcium (8.5-10.1) mg/dL Total Bilirubin (0.2-1.0) mg/dL AST (15-37) IU/L ALT (14-63) IU/L Alkaline Phosphatase (46-116) U/L Troponin I (0.000-0.056) ng/mL Total Protein (6.4-8.2) g/dL Albumin (3.4-5.0) g/dL Globulin (2.6-4.0) g/dL Albumin/Globulin Ratio (0.9-1.6) Lipase (73-393) U/L SARS-CoV-2 RNA (BALA) NEGATIVE (NEGATIVE) 06/17/21 Range/Units 15:00 WBC (4.0-11.0) K/uL RBC (4.30-5.90) M/uL Hgb (12.0-16.0) g/dL Hct (36.0-46.0) % MCV (80.0-98.0) fL MCH (27.0-32.0) pg MCHC (31.0-37.0) g/dL RDW Std Deviation (28.0-62.0) fl RDW Coeff of [place] (11.0-15.0) % Plt Count (150-400) K/uL MPV (7.40-12.00) fL Neut % (Auto) (48.0-80.0) % Lymph % (Auto) (16.0-40.0) % [place] % (Auto) (0.0-15.0) % Eos % (Auto) (0.0-7.0) % Baso % (Auto) (0.0-1.5) % Neut # (Auto) (1.4-5.7) K/uL Lymph # (Auto) (0.6-2.4) K/uL [place] # (Auto) (0.0-0.8) K/uL Eos # (Auto) (0.0-0.7) K/uL Baso # (Auto) (0.0-0.1) K/uL Nucleated RBC % /100WBC Nucleated RBCs # K/uL D-Dimer, Quantitative (0.0-0.50) mg/L FEU ABG pH (7.35-7.45) ABG pCO2 (35-45) mmHG ABG pO2 (80-105) mmHG ABG HCO3 (22-26) mEq/L ABG Total CO2 (23-27) mmol/L ABG Base Excess (-2.0-3.0) Sodium (136-145) mmol/L Potassium (3.5-5.1) mmol/L Chloride (98-107) mmol/L Carbon Dioxide (21.0-32.0) mmol/L BUN (7.0-18.0) mg/dL Creatinine (0.6-1.0) mg/dL Est Cr Clr Drug Dosing mL/min Estimated GFR (MDRD) ml/min Glucose (74-106) mg/dL Lactic Acid (0.4-2.0) mmol/L Calcium (8.5-10.1) mg/dL Total Bilirubin (0.2-1.0) mg/dL AST (15-37) IU/L ALT (14-63) IU/L Alkaline Phosphatase (46-116) U/L Troponin I < 0.050 (0.000-0.056) ng/mL Total Protein (6.4-8.2) g/dL Albumin (3.4-5.0) g/dL Globulin (2.6-4.0) g/dL Albumin/Globulin Ratio (0.9-1.6) Lipase (73-393) U/L SARS-CoV-2 RNA (BALA) (NEGATIVE) Result Diagrams: 06/17/21 10:45 06/17/21 10:45 Raheel Results Last 24 hrs: Microbiology 06/17/21 11:21 Influenza Type A Antigen Screen - Final Nasopharyngeal Swab NEGATIVE INFLUENZA A VIRUS AG REFERENCE RANGE: NEGATIVE Influenza Type B Antigen Screen - Final NEGATIVE INFLUENZA B VIRUS AG REFERENCE RANGE: NEGATIVE 06/17/21 11:30 Anaerobic Blood Culture - Final Blood - Venous - Lab Draw Sepsis Event Note - Focused Exam Vital Signs: Vital Signs Temp Pulse Resp BP Pulse Ox 06/17/21 16:34 35.7 C L 100 20 131/71 94 L 06/17/21 15:50 96 18 118/72 98 06/17/21 15:13 98 20 93 L 06/17/21 14:30 100 18 128/71 94 L 06/17/21 13:51 88 20 130/74 94 L 06/17/21 13:08 55 L 18 156/43 H 94 L 06/17/21 12:40 60 18 144/73 H 94 L 06/17/21 11:38 36.8 C 98 20 158/73 H 94 L 06/17/21 10:40 101 H 20 158/72 H 94 L 06/17/21 10:38 36.6 C 101 H 26 H 174/101 H 82 L - Problem List (1) Acute respiratory failure with hypoxia SNOMED Code(s): 60764696, 246018232 ICD Code: J96.01 - ACUTE RESPIRATORY FAILURE WITH HYPOXIA Status: Acute Current Visit: Yes (2) Asthma exacerbation SNOMED Code(s): 042723662 ICD Code: J45.901 - UNSPECIFIED ASTHMA WITH (ACUTE) EXACERBATION Status: Acute Current Visit: Yes Qualifiers: Asthma severity: moderate Asthma persistence: unspecified Qualified Code(s): J45.901 - Unspecified asthma with (acute) exacerbation (3) Obesity SNOMED Code(s): 774539967, 916280577 ICD Code: E66.9 - OBESITY, UNSPECIFIED Status: Acute Current Visit: Yes (4) Hypertension SNOMED Code(s): 22907645 ICD Code: I10 - ESSENTIAL (PRIMARY) HYPERTENSION Status: Acute Current Visit: Yes (5) CAD (coronary artery disease) SNOMED Code(s): 98637982 ICD Code: I25.10 - ATHSCL HEART DISEASE OF [place] CORONARY ARTERY W/O ANG PCTRS Status: Acute Current Visit: Yes Problem List Initiated/Reviewed/Updated: Yes Orders Last 24hrs: Active Orders 24 hr Category Date Time Status Admission Status [Patient Status] [ADT] Stat ADT 06/17/21 15:58 Active Ambulate [RC] ASDIRECTED Care 06/17/21 17:31 Active Antiembolic Devices [RC] PER UNIT ROUTINE Care 06/17/21 17:32 Active Cardiac Monitoring [RC] . DIRECTED Care 06/17/21 10:41 Active Oxygen Therapy [RC] PRN Care 06/17/21 17:31 Active Pulse Oximetry [RC] PRN Care 06/17/21 17:31 Active RT Aerosol Therapy [RC] ASDIRECTED Care 06/17/21 10:44 Active RT Aerosol Therapy [RC] ASDIRECTED Care 06/17/21 10:47 Active RT Aerosol Therapy [RC] ASDIRECTED Care 06/17/21 10:47 Active RT Aerosol Therapy [RC] ASDIRECTED Care 06/17/21 10:47 Active RT Aerosol Therapy [RC] ASDIRECTED Care 06/17/21 14:49 Active RT Aerosol Therapy [RC] ASDIRECTED Care 06/17/21 17:33 Active VTE/DVT Education [RC] PER UNIT ROUTINE Care 06/17/21 17:31 Active Vital Signs [RC] Q4H Care 06/17/21 17:31 Active CULTURE BLOOD [BC] Stat Lab 06/17/21 11:25 Received CULTURE BLOOD [BC] Stat Lab 06/17/21 11:30 Results Acetaminophen [TylenoL] Med 06/17/21 17:31 Ordered 650 mg PO Q4H PRN Albuterol/Ipratropium [DuoNeb 3.0-0.5 MG/3 ML] Med 06/17/21 18:00 Ordered 3 ml NEB Q4HRRT Dextromethorphan/guaiFENesin [Robitussin DM] Med 06/17/21 17:37 Ordered 10 ml PO Q4H PRN Enoxaparin [Lovenox] Med 06/17/21 17:45 Ordered 40 mg SUBCUT Q24H Montelukast [Singulair] Med 06/17/21 21:00 Ordered 10 mg PO BEDTIME Ondansetron [Zofran] Med 06/17/21 17:31 Ordered 4 mg IVPUSH Q4H PRN Pantoprazole [ProTONIX IV] 40 mg Med 06/18/21 09:00 Ordered Sodium Chloride 0.9% [Normal Saline] 10 ml IV DAILY Sodium Chloride 0.9% [Saline Flush] Med 06/17/21 10:41 Active 10 ml FLUSH ASDIRECTED PRN Sodium Chloride 0.9% [Saline Flush] Med 06/17/21 10:41 Active 2.5 ml FLUSH ASDIRECTED PRN methylPREDNISolone Sod Succ [Solu-MEDROL] Med 06/17/21 17:45 Ordered 40 mg IVPUSH Q8H Blood Culture x2 Reflex Set [OM.PC] Stat Oth 06/17/21 11:14 Ordered Saline Lock Insert [OM.PC] Stat Oth 06/17/21 10:41 Ordered Sequential Compression Device [OM.PC] Per Unit Routine Oth 06/17/21 17:32 Ordered Resuscitation Status Routine Resus Stat 06/17/21 17:31 Ordered Medication Orders Acetaminophen (Acetaminophen 325 Mg Tab) 650 mg PO Q4H PRN PRN Reason: Pain (Mild 1-3)/fever Albuterol/Ipratropium (Albuterol/Ipratropium 3.0-0.5 Mg/3 Ml Neb Soln) 3 ml NEB Q4HRRT ROBIN Enoxaparin Sodium (Enoxaparin 40 Mg/0.4 Ml Syringe) 40 mg SUBCUT Q24H ROBIN Guaifenesin/Dextromethorphan (Guaifenesin/Dextromethorphan 100-10 Mg/5 Ml Soln 10 Ml Cup) 10 ml PO Q4H PRN PRN Reason: Cough Methylprednisolone Sodium Succinate (Methylprednisolone Sodium Succinate 40 Mg/1 Ml Sdv) 40 mg IVPUSH Q8H ROBIN Montelukast Sodium (Montelukast 10 Mg Tab) 10 mg PO BEDTIME ROBIN Ondansetron HCl (Ondansetron 4 Mg/2 Ml Sdv) 4 mg IVPUSH Q4H PRN PRN Reason: Nausea/Vomiting Sodium Chloride (Sodium Chloride 0.9% 2.5 Ml Syringe) 2.5 ml FLUSH ASDIRECTED PRN PRN Reason: Keep Vein Open Last Admin: 06/17/21 11:07 Dose: 2.5 ml Documented by: JOSELYN Sodium Chloride (Sodium Chloride 0.9% 10 Ml Syringe) 10 ml FLUSH ASDIRECTED PRN PRN Reason: Keep Vein Open Last Admin: 06/17/21 11:07 Dose: 10 ml Documented by: JOSELYN Assessment/Plan Comment:: 55-year-old female admitted for acute hypoxic respiratory failure secondary to asthma exacerbation CTA noted, not optimal study to rule out PE but no large PE and no heart strain noted, no lobar pneumonia Leukocytosis noted likely stress-induced , will not start antibiotics at this point unless there are signs suggesting of pneumonia We will start patient on IV steroids, wean off as able DuoNebs every 4 hours scheduled Montelukast daily Guaifenesin for cough as needed Lovenox 40 twice daily due to obesity Cardiac diet Calcified LAD noted on CT angio, discussed with patient that she needs work-up for CAD, will start patient on atorvastatin 40 mg in the meantime Recommended patient seeing a catalog library assistant for evaluation of her asthma upon discharge if her exacerbation become more frequent
[2021-06-17] MEDS ORDERED: Enoxaparin 40 MG/0.4 ML Syringe SUBCUT SCH (17:45)
[2021-06-17] MEDS: Albuterol/Ipratropium 3.0-0.5 MG/3 ML Neb Soln NEB SCH ×2 (18:00→22:57)
[2021-06-17] MEDS: Enoxaparin 40 MG/0.4 ML Syringe SUBCUT SCH (18:02)
[2021-06-17] MEDS: methylPREDNISolone Sodium Succinate 40 MG/1 ML SDV IVPUSH SCH (18:03)
[2021-06-17] MEDS: Montelukast 10 MG Tab PO SCH (21:18)
[2021-06-17] MEDS: atorvaSTATin 40 MG Tab PO SCH (21:18)
[2021-06-18] MEDS: methylPREDNISolone Sodium Succinate 40 MG/1 ML SDV IVPUSH SCH ×3 (02:49→17:02)
[2021-06-18] MEDS: Albuterol/Ipratropium 3.0-0.5 MG/3 ML Neb Soln NEB SCH ×6 (02:49→22:52)
[2021-06-18 07:52] LABS: BLOOD UREA NITROGEN,BUN 26 mg/dL (7.0-18.0); CARBON DIOXIDE,CO2 28.1 mmol/L (21.0-32.0); CHLORIDE,CL 100 mmol/L (98-107); GLUCOSE RANDOM 133 mg/dL (74-106); POTASSIUM,K 3.2 mmol/L (3.5-5.1); SODIUM,NA 139 mmol/L (136-145)
[2021-06-18] MEDS: Pantoprazole 40 MG in Sodium Chloride 0.9% 10 ML IV SCH (09:28)
[2021-06-18] MEDS: Enoxaparin 40 MG/0.4 ML Syringe SUBCUT SCH ×2 (09:41→21:00)
[2021-06-18] MEDS: Irbesartan 150 MG Tab PO SCH (11:25)
[2021-06-18] MEDS: Hydrochlorothiazide 25 MG Tab PO SCH (11:25)
[2021-06-18] MEDS: Escitalopram 10 MG Tab PO SCH (11:26)
[2021-06-18] MEDS ORDERED: Potassium Chloride 20 MEQ Tab.ER PO ONE (11:55)
--- NOTE | 2021-06-18 11:58 | PCM.PN ---
- General Info Date of Service: 06/18/21 - Review of Systems Systems Review Comment:: shortness of breath has improved, had diarrhea this morning - Patient Data Vitals - Most Recent: Last Vital Signs Temp 36.5 C 06/18/21 11:28 Pulse 78 06/18/21 11:28 Resp 18 06/18/21 11:28 BP 170/75 H 06/18/21 11:28 Pulse Ox 97 06/18/21 11:32 Weight - Most Recent: 185.519 kg I&O - Last 24 Hours: Intake & Output 06/17/21 06/18/21 06/18/21 22:59 06:59 14:59 Intake Total 850 Output Total 0 Balance 850 Lab Results Last 24 Hours: Laboratory Results - last 24 hr 06/17/21 06/17/21 06/17/21 Range/Units 10:45 11:21 11:25 D-Dimer, Quantitative 0.77 H (0.0-0.50) mg/L FEU ABG pH (7.35-7.45) ABG pCO2 (35-45) mmHG ABG pO2 (80-105) mmHG ABG HCO3 (22-26) mEq/L ABG Total CO2 (23-27) mmol/L ABG Base Excess (-2.0-3.0) Sodium (136-145) mmol/L Potassium (3.5-5.1) mmol/L Chloride (98-107) mmol/L Carbon Dioxide (21.0-32.0) mmol/L BUN (7.0-18.0) mg/dL Creatinine (0.6-1.0) mg/dL Est Cr Clr Drug Dosing mL/min Estimated GFR (MDRD) ml/min Glucose (74-106) mg/dL Lactic Acid 1.6 (0.4-2.0) mmol/L Calcium (8.5-10.1) mg/dL Troponin I (0.000-0.056) ng/mL Triglycerides (0-200) mg/dL Cholesterol (50-200) mg/dL LDL Cholesterol, Calc (60-180) mg/dL VLDL Cholesterol (5-55) mg/dL HDL Cholesterol (40-60) mg/dL Cholesterol/HDL Ratio (3.3-6.0) TSH, Ultra Sensitive (0.36-3.74) uIU/mL SARS-CoV-2 RNA (BALA) NEGATIVE (NEGATIVE) 06/17/21 06/17/21 06/17/21 Range/Units 13:05 15:00 15:00 D-Dimer, Quantitative (0.0-0.50) mg/L FEU ABG pH 7.44 (7.35-7.45) ABG pCO2 40 (35-45) mmHG ABG pO2 62 L (80-105) mmHG ABG HCO3 27 H (22-26) mEq/L ABG Total CO2 24.3 (23-27) mmol/L ABG Base Excess 2.6 (-2.0-3.0) Sodium (136-145) mmol/L Potassium (3.5-5.1) mmol/L Chloride (98-107) mmol/L Carbon Dioxide (21.0-32.0) mmol/L BUN (7.0-18.0) mg/dL Creatinine (0.6-1.0) mg/dL Est Cr Clr Drug Dosing mL/min Estimated GFR (MDRD) ml/min Glucose (74-106) mg/dL Lactic Acid (0.4-2.0) mmol/L Calcium (8.5-10.1) mg/dL Troponin I < 0.050 (0.000-0.056) ng/mL Triglycerides 76 (0-200) mg/dL Cholesterol 141 (50-200) mg/dL LDL Cholesterol, Calc 76 (60-180) mg/dL VLDL Cholesterol 15 (5-55) mg/dL HDL Cholesterol 50 (40-60) mg/dL Cholesterol/HDL Ratio 2.8 L (3.3-6.0) TSH, Ultra Sensitive 0.86 (0.36-3.74) uIU/mL SARS-CoV-2 RNA (BALA) (NEGATIVE) 06/18/21 Range/Units 06:22 D-Dimer, Quantitative (0.0-0.50) mg/L FEU ABG pH (7.35-7.45) ABG pCO2 (35-45) mmHG ABG pO2 (80-105) mmHG ABG HCO3 (22-26) mEq/L ABG Total CO2 (23-27) mmol/L ABG Base Excess (-2.0-3.0) Sodium 139 (136-145) mmol/L Potassium 3.2 L (3.5-5.1) mmol/L Chloride 100 (98-107) mmol/L Carbon Dioxide 28.1 (21.0-32.0) mmol/L BUN 26 H (7.0-18.0) mg/dL Creatinine 0.9 (0.6-1.0) mg/dL Est Cr Clr Drug Dosing 67.87 mL/min Estimated GFR (MDRD) > 60.0 ml/min Glucose 133 H (74-106) mg/dL Lactic Acid (0.4-2.0) mmol/L Calcium 8.5 (8.5-10.1) mg/dL Troponin I (0.000-0.056) ng/mL Triglycerides (0-200) mg/dL Cholesterol (50-200) mg/dL LDL Cholesterol, Calc (60-180) mg/dL VLDL Cholesterol (5-55) mg/dL HDL Cholesterol (40-60) mg/dL Cholesterol/HDL Ratio (3.3-6.0) TSH, Ultra Sensitive (0.36-3.74) uIU/mL SARS-CoV-2 RNA (BALA) (NEGATIVE) Raheel Results Last 24 Hours: Microbiology 06/17/21 11:30 Aerobic Blood Culture - Preliminary Blood - Venous - Lab Draw NO GROWTH AFTER 1 DAY Anaerobic Blood Culture - Final 06/17/21 11:25 Aerobic Blood Culture - Preliminary Blood - Venous NO GROWTH AFTER 1 DAY Anaerobic Blood Culture - Preliminary NO GROWTH AFTER 1 DAY 06/17/21 11:21 Influenza Type A Antigen Screen - Final Nasopharyngeal Swab NEGATIVE INFLUENZA A VIRUS AG REFERENCE RANGE: NEGATIVE Influenza Type B Antigen Screen - Final NEGATIVE INFLUENZA B VIRUS AG REFERENCE RANGE: NEGATIVE Med Orders - Current: Current Medications Acetaminophen (Acetaminophen 325 Mg Tab) 650 mg PO Q4H PRN PRN Reason: Pain (Mild 1-3)/fever Albuterol/Ipratropium (Albuterol/Ipratropium 3.0-0.5 Mg/3 Ml Neb Soln) 3 ml NEB Q4HRRT [facility] Last Admin: 06/18/21 09:27 Dose: 3 ml Documented by: Atorvastatin Calcium (Atorvastatin 40 Mg Tab) 40 mg PO BEDTIME [facility] Last Admin: 06/17/21 21:18 Dose: 40 mg Documented by: Enoxaparin Sodium (Enoxaparin 40 Mg/0.4 Ml Syringe) 40 mg SUBCUT BID [facility] Last Admin: 06/18/21 09:41 Dose: 40 mg Documented by: Escitalopram Oxalate (Escitalopram 10 Mg Tab) 20 mg PO DAILY [facility] Last Admin: 06/18/21 11:26 Dose: 20 mg Documented by: Guaifenesin/Dextromethorphan (Guaifenesin/Dextromethorphan 100-10 Mg/5 Ml Soln 10 Ml Cup) 10 ml PO Q4H PRN PRN Reason: Cough Hydrochlorothiazide (Hydrochlorothiazide 25 Mg Tab) 25 mg PO DAILY [facility] Last Admin: 06/18/21 11:25 Dose: 25 mg Documented by: Pantoprazole Sodium 40 mg/ (Sodium Chloride) 10 mls @ 300 mls/hr IV DAILY [facility] Last Admin: 06/18/21 09:28 Dose: 300 mls/hr Documented by: Irbesartan (Irbesartan 150 Mg Tab) 150 mg PO DAILY [facility] Last Admin: 06/18/21 11:25 Dose: 150 mg Documented by: Methylprednisolone Sodium Succinate (Methylprednisolone Sodium Succinate 40 Mg/1 Ml Sdv) 40 mg IVPUSH Q8H [facility] Last Admin: 06/18/21 09:13 Dose: 40 mg Documented by: Montelukast Sodium (Montelukast 10 Mg Tab) 10 mg PO BEDTIME [facility] Last Admin: 06/17/21 21:18 Dose: 10 mg Documented by: Ondansetron HCl (Ondansetron 4 Mg/2 Ml Sdv) 4 mg IVPUSH Q4H PRN PRN Reason: Nausea/Vomiting Potassium Chloride (Potassium Chloride 20 Meq Tab.Er) 40 meq PO ONETIME ONE Stop: 06/18/21 11:56 Sodium Chloride (Sodium Chloride 0.9% 2.5 Ml Syringe) 2.5 ml FLUSH ASDIRECTED PRN PRN Reason: Keep Vein Open Last Admin: 06/17/21 11:07 Dose: 2.5 ml Documented by: Sodium Chloride (Sodium Chloride 0.9% 10 Ml Syringe) 10 ml FLUSH ASDIRECTED PRN PRN Reason: Keep Vein Open Last Admin: 06/17/21 11:07 Dose: 10 ml Documented by: Discontinued Medications Albuterol/Ipratropium (Albuterol/Ipratropium 3.0-0.5 Mg/3 Ml Neb Soln) 3 ml NEB ONETIME ONE Stop: 06/17/21 10:45 Last Admin: 06/17/21 11:01 Dose: Not Given Documented by: Albuterol/Ipratropium (Albuterol/Ipratropium 3.0-0.5 Mg/3 Ml Neb Soln) 3 ml NEB ONETIME ONE Stop: 06/17/21 10:48 Last Admin: 06/17/21 11:07 Dose: 3 ml Documented by: Albuterol/Ipratropium (Albuterol/Ipratropium 3.0-0.5 Mg/3 Ml Neb Soln) 3 ml NEB ONETIME ONE Stop: 06/17/21 10:48 Last Admin: 06/17/21 11:07 Dose: 3 ml Documented by: Albuterol/Ipratropium (Albuterol/Ipratropium 3.0-0.5 Mg/3 Ml Neb Soln) 3 ml NEB ONETIME ONE Stop: 06/17/21 10:48 Last Admin: 06/17/21 11:07 Dose: 3 ml Documented by: Albuterol/Ipratropium (Albuterol/Ipratropium 3.0-0.5 Mg/3 Ml Neb Soln) 3 ml NEB ONETIME ONE Stop: 06/17/21 14:50 Last Admin: 06/17/21 15:15 Dose: 3 ml Documented by: Dexamethasone (Dexamethasone 10 Mg/Ml Sdv) 10 mg IVPUSH ONETIME ONE Stop: 06/17/21 11:07 Last Admin: 06/17/21 11:22 Dose: 10 mg Documented by: Enoxaparin Sodium (Enoxaparin 40 Mg/0.4 Ml Syringe) 40 mg SUBCUT Q24H ROBIN Magnesium Sulfate 2 gm/ Premix 50 mls @ 50 mls/hr IV ONETIME ONE Stop: 06/17/21 12:44 Last Admin: 06/17/21 11:40 Dose: 50 mls/hr Documented by: Iopamidol (Iopamidol 755 Mg/Ml 500 Ml Multipack Bottle) 100 ml IVPUSH ONETIME STA Stop: 06/17/21 15:06 Last Admin: 06/17/21 15:06 Dose: 100 ml Documented by: - Exam General: Alert, Oriented Lungs: Normal Respiratory Effort, Wheezing Cardiovascular: Regular Rate, Regular Rhythm GI/Abdominal Exam: Soft, Non-Tender, No Distention Extremities: Non-Tender, No Pedal Edema Skin: Warm, Dry, Intact Neurological: No New Focal Deficit - Patient Data Lab Results Last 24 hrs: Laboratory Results - last 24 hr 06/17/21 06/17/21 06/17/21 Range/Units 10:45 11:21 11:25 D-Dimer, Quantitative 0.77 H (0.0-0.50) mg/L FEU ABG pH (7.35-7.45) ABG pCO2 (35-45) mmHG ABG pO2 (80-105) mmHG ABG HCO3 (22-26) mEq/L ABG Total CO2 (23-27) mmol/L ABG Base Excess (-2.0-3.0) Sodium (136-145) mmol/L Potassium (3.5-5.1) mmol/L Chloride (98-107) mmol/L Carbon Dioxide (21.0-32.0) mmol/L BUN (7.0-18.0) mg/dL Creatinine (0.6-1.0) mg/dL Est Cr Clr Drug Dosing mL/min Estimated GFR (MDRD) ml/min Glucose (74-106) mg/dL Lactic Acid 1.6 (0.4-2.0) mmol/L Calcium (8.5-10.1) mg/dL Troponin I (0.000-0.056) ng/mL Triglycerides (0-200) mg/dL Cholesterol (50-200) mg/dL LDL Cholesterol, Calc (60-180) mg/dL VLDL Cholesterol (5-55) mg/dL HDL Cholesterol (40-60) mg/dL Cholesterol/HDL Ratio (3.3-6.0) TSH, Ultra Sensitive (0.36-3.74) uIU/mL SARS-CoV-2 RNA (BALA) NEGATIVE (NEGATIVE) 06/17/21 06/17/21 06/17/21 Range/Units 13:05 15:00 15:00 D-Dimer, Quantitative (0.0-0.50) mg/L FEU ABG pH 7.44 (7.35-7.45) ABG pCO2 40 (35-45) mmHG ABG pO2 62 L (80-105) mmHG ABG HCO3 27 H (22-26) mEq/L ABG Total CO2 24.3 (23-27) mmol/L ABG Base Excess 2.6 (-2.0-3.0) Sodium (136-145) mmol/L Potassium (3.5-5.1) mmol/L Chloride (98-107) mmol/L Carbon Dioxide (21.0-32.0) mmol/L BUN (7.0-18.0) mg/dL Creatinine (0.6-1.0) mg/dL Est Cr Clr Drug Dosing mL/min Estimated GFR (MDRD) ml/min Glucose (74-106) mg/dL Lactic Acid (0.4-2.0) mmol/L Calcium (8.5-10.1) mg/dL Troponin I < 0.050 (0.000-0.056) ng/mL Triglycerides 76 (0-200) mg/dL Cholesterol 141 (50-200) mg/dL LDL Cholesterol, Calc 76 (60-180) mg/dL VLDL Cholesterol 15 (5-55) mg/dL HDL Cholesterol 50 (40-60) mg/dL Cholesterol/HDL Ratio 2.8 L (3.3-6.0) TSH, Ultra Sensitive 0.86 (0.36-3.74) uIU/mL SARS-CoV-2 RNA (BALA) (NEGATIVE) 06/18/21 Range/Units 06:22 D-Dimer, Quantitative (0.0-0.50) mg/L FEU ABG pH (7.35-7.45) ABG pCO2 (35-45) mmHG ABG pO2 (80-105) mmHG ABG HCO3 (22-26) mEq/L ABG Total CO2 (23-27) mmol/L ABG Base Excess (-2.0-3.0) Sodium 139 (136-145) mmol/L Potassium 3.2 L (3.5-5.1) mmol/L Chloride 100 (98-107) mmol/L Carbon Dioxide 28.1 (21.0-32.0) mmol/L BUN 26 H (7.0-18.0) mg/dL Creatinine 0.9 (0.6-1.0) mg/dL Est Cr Clr Drug Dosing 67.87 mL/min Estimated GFR (MDRD) > 60.0 ml/min Glucose 133 H (74-106) mg/dL Lactic Acid (0.4-2.0) mmol/L Calcium 8.5 (8.5-10.1) mg/dL Troponin I (0.000-0.056) ng/mL Triglycerides (0-200) mg/dL Cholesterol (50-200) mg/dL LDL Cholesterol, Calc (60-180) mg/dL VLDL Cholesterol (5-55) mg/dL HDL Cholesterol (40-60) mg/dL Cholesterol/HDL Ratio (3.3-6.0) TSH, Ultra Sensitive (0.36-3.74) uIU/mL SARS-CoV-2 RNA (BALA) (NEGATIVE) Result Diagrams: 06/17/21 10:45 06/18/21 06:22 Raheel Results Last 24 hrs: Microbiology 06/17/21 11:30 Aerobic Blood Culture - Preliminary Blood - Venous - Lab Draw NO GROWTH AFTER 1 DAY Anaerobic Blood Culture - Final 06/17/21 11:25 Aerobic Blood Culture - Preliminary Blood - Venous NO GROWTH AFTER 1 DAY Anaerobic Blood Culture - Preliminary NO GROWTH AFTER 1 DAY 06/17/21 11:21 Influenza Type A Antigen Screen - Final Nasopharyngeal Swab NEGATIVE INFLUENZA A VIRUS AG REFERENCE RANGE: NEGATIVE Influenza Type B Antigen Screen - Final NEGATIVE INFLUENZA B VIRUS AG REFERENCE RANGE: NEGATIVE Sepsis Event Note - Evaluation Sepsis Screening Result: Possible Sepsis Risk - Focused Exam Vital Signs: Vital Signs Temp Pulse Resp BP BP Pulse Ox 06/18/21 11:32 97 06/18/21 11:28 36.5 C 78 18 170/75 H 96 06/18/21 11:25 170/75 H 06/18/21 09:00 36.5 C 82 16 140/69 98 06/18/21 05:01 36.2 C 87 18 117/73 95 06/18/21 00:00 36.6 C 97 16 104/74 95 - Problem List Review Problem List Initiated/Reviewed/Updated: Yes - My Orders Last 24 Hours: My Active Orders 06/18/21 10:45 Escitalopram [Lexapro] 20 mg PO DAILY Irbesartan [Avapro] 150 mg PO DAILY hydroCHLOROthiazide 25 mg PO DAILY 06/18/21 11:55 CBC WITH AUTO DIFF [HEME] Routine Potassium Chloride [Klor-Con M20] 40 meq PO ONETIME ONE 06/19/21 05:11 BASIC METABOLIC PANEL,BMP [CHEM] AM CBC WITH AUTO DIFF [HEME] AM - Plan Plan:: 55-year-old female admitted for acute hypoxic respiratory failure secondary to asthma exacerbation Asthma: continue solumedrol, duonebs, montelukast Calcified LAD on CT angio: started atorvastatin Lovenox for DVT prophylaxis
[2021-06-18] MEDS: atorvaSTATin 40 MG Tab PO SCH (20:59)
[2021-06-18] MEDS: Montelukast 10 MG Tab PO SCH (21:00)
[2021-06-19] MEDS: methylPREDNISolone Sodium Succinate 40 MG/1 ML SDV IVPUSH SCH ×2 (02:31→10:33)
[2021-06-19] MEDS: Albuterol/Ipratropium 3.0-0.5 MG/3 ML Neb Soln NEB SCH ×3 (02:31→10:17)
[2021-06-19 07:59] LABS: BLOOD UREA NITROGEN,BUN 27 mg/dL (7.0-18.0); CARBON DIOXIDE,CO2 28.2 mmol/L (21.0-32.0); CHLORIDE,CL 101 mmol/L (98-107); GLUCOSE RANDOM 142 mg/dL (74-106); POTASSIUM,K 3.4 mmol/L (3.5-5.1); SODIUM,NA 138 mmol/L (136-145)
[2021-06-19 08:36] VITALS: BP 141/82; PULSE 76
[2021-06-19] MEDS: Pantoprazole 40 MG in Sodium Chloride 0.9% 10 ML IV SCH (08:44)
[2021-06-19] MEDS: Irbesartan 150 MG Tab PO SCH (08:50)
[2021-06-19] MEDS: Escitalopram 10 MG Tab PO SCH (08:50)
[2021-06-19] MEDS: Hydrochlorothiazide 25 MG Tab PO SCH (08:50)
[2021-06-19] MEDS: Enoxaparin 40 MG/0.4 ML Syringe SUBCUT SCH (10:33)
--- NOTE | 2021-06-19 10:50 | PCM.DCSUM1 ---
Discharge Summary - Hospital Course Brief History: Patient is a 55-year-old female, with a history of asthma, hypertension, and obesity, who presents emergency room today with concern of shortness of breath and cough x2 days. 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 Her Covid test was negative but last night her cough and shortness of breath got significantly worse. Patient states that her chest feels tight like she cannot take a deep breath in and similar to past asthma exacerbations. Patient states she has not taken anything for her symptoms and denies any other symptoms or concerns. Patient is vaccinated for COVID-19 with Moderna and has received both doses. Upon arrival to the ED, patient is in moderate respiratory distress with an increased respiratory rate of 26 with hypoxia on room air of 82 and tachycardic 110s on exam. Patient was quickly transitioned over to 5 L nasal cannula and satting about 92%. cont DuoNeb initiated immediately upon arrival to the ED. Also re ceived a dose of steroid, and IV mag. Following continuous DuoNeb, patient has improvement of his oxygenation about 93% on 5 L nasal cannula. Patient's respiratory rate improved to about 20, and tachycardia has resolved to the 90s. EKG sinus tachycardia with a rate of 103 without STEMI. CBC remarkable for an elevated white blood cell count at 15.14, otherwise mild derangements of CBC are unremarkable. CMP shows an isolated BUN of 22 and glucose mildly elevated at 146, otherwise mild derangements of CMP unremarkable. Troponin negativex2. Lactic within normal limits. Pending blood cultures x2. Influenza negative. COVID19 negative. Ddimer elevated 0.77. ABG shows pH WNL at 7.44 with normal CO2 at 40, bicarb mildly elevated at 27, O2 at 62. Repeat trop negative. Ang CT chest shows contrast bolus is not diagnostic for pulmonary embolism. There is no evidence for right heart strain. No pulmonary infarct. There is no thoracic lymphadenopathy or acute airspace disease. Surgical changes in the upper abdomen compatible with prior gastric bypass. Heavily calcified left anterior descending coronary artery. All incidental findings of imaging today discussed with patient importance to have his follow-up with a primary care provider at a later date. Patient currently sees a physician via telemedicine due to the ongoing pandemic. Upon reevaluation of patient, she is breathing comfortably throughout remainder of stay in emergency room and approximately 93% on 4 to 5 L nasal cannula. Her respiratory rate has improved to 19-20 and heart rate remains within normal limits. Patient states that she was diagnosed with asthma about 10 years ago under formal pulmonary function tests. Patient states that she was diagnosed based on her symptoms by her primary care doctor and does not see a shut off worker. Patient states that she has never been hospitalized or intubated due to her asthma but has had few ER visits which resolved with some breathing treatments. Patient does not take any maintenance medications for her asthma. Patient was admitted to the hospital for further management of hypoxic respiratory failure secondary to asthma exacerbation. Diagnosis: Stroke: No - Discharge Data Discharge Date: 06/19/21 Discharge Disposition: Home, Self-Care 01 Condition: Stable - Referral to Home Health Primary Care Physician: PCP None - Patient Summary/Data Hospital Course: Admission diagnoses: Acute hypoxic respiratory failure Acute asthma exacerbation Discharge diagnoses: Acute hypoxic respiratory failure resolved Acute asthma exacerbation improved. Justyna was admitted secondary to acute hypoxic respiratory failure secondary to an exacerbation. Patient was treated with IV steroids along with Singulair and DuoNeb treatments. Patient steadily improved and was able to be weaned off oxygen. Today she is satting 95% on room air at rest as well as with activity. Blood cultures and influenza along with Covid swab negative. Patient very eager to go home she is feeling much improved. Patient will be discharged home with Singulair to take nightly along with continuing her loratadine. She is also to continue with her inhalers at home. She is should see PCP in 7 to 10 days or sooner if concerns should arise. Should be sent home on 40 mg of prednisone daily for the next 4 days. All questions and concerns addressed. Patient to be discharged home today - Patient Instructions Diet: Usual Diet as Tolerated Activity: No Strenuous Activities, Rest and Relax Today Showering/Bathing: May Shower Notify Provider of: Fever, Increased Pain, Swelling and Redness, Drainage, Nausea and/or Vomiting - Discharge Plan *PRESCRIPTION DRUG MONITORING PROGRAM REVIEWED*: Not Applicable *COPY OF PRESCRIPTION DRUG MONITORING REPORT IN PATIENT YURY: Not Applicable Prescriptions/Med Rec: predniSONE [Prednisone] 40 mg PO DAILY #8 tablet Montelukast [Singulair] 10 mg PO BEDTIME #30 tablet Home Medications: Home Meds Albuterol Sulfate [Albuterol Sulfate HFA] 2 inh IH QID PRN 01/13/15 [History] Escitalopram [Lexapro] 20 mg PO DAILY 01/13/15 [History] Irbesartan 150 mg PO DAILY 01/13/15 [History] Loratadine 10 mg PO DAILY 01/13/15 [History] Multivitamin [Daily Vitamin] 1 each PO DAILY 01/13/15 [History] hydroCHLOROthiazide [Hydrochlorothiazide] 25 mg PO DAILY 01/13/15 [History] Omeprazole 20 mg PO DAILY 06/17/21 [History] Montelukast [Singulair] 10 mg PO BEDTIME #30 tablet 06/19/21 [Rx] predniSONE [Prednisone] 40 mg PO DAILY #8 tablet 06/19/21 [Rx] Oxygen Therapy Mode: Room Air Patient Handouts: Montelukast oral tablets, Asthma, Adult, [id number], Prednisone tablets Referrals: Celia Ornelas, [Ordering Only Provider] - - Discharge Summary/Plan Comment DC Time >30 min.: No Total # of Minutes for Discharge Time: 20 - Patient Data Vitals - Most Recent: Last Vital Signs Temp 96.3 F L 06/19/21 08:00 Pulse 76 06/19/21 08:00 Resp 20 06/19/21 08:00 BP 141/82 H 06/19/21 08:50 Pulse Ox 95 06/19/21 09:51 Weight - Most Recent: 185.519 kg I&O - Last 24 hours: Intake & Output 06/18/21 06/19/21 06/19/21 22:59 06:59 14:59 Intake Total 700 550 Output Total 550 700 Balance 150 -150 Lab Results - Last 24 hrs: Laboratory Results - last 24 hr 06/18/21 06/19/21 06/19/21 Range/Units 12:20 06:25 06:25 WBC 10.83 11.55 H (4.0-11.0) K/uL RBC 4.53 4.40 (4.30-5.90) M/uL Hgb 11.9 L 11.4 L (12.0-16.0) g/dL Hct 36.8 36.0 (36.0-46.0) % MCV 81.2 81.8 (80.0-98.0) fL MCH 26.3 L 25.9 L (27.0-32.0) pg MCHC 32.3 31.7 (31.0-37.0) g/dL RDW Std Deviation 52.4 52.8 (28.0-62.0) fl RDW Coeff of [place] 18 H 18 H (11.0-15.0) % Plt Count 234 242 (150-400) K/uL MPV 11.40 11.60 (7.40-12.00) fL Neut % (Auto) 90.0 H 89.0 H (48.0-80.0) % Lymph % (Auto) 5.4 L 5.8 L (16.0-40.0) % [place] % (Auto) 4.6 5.2 (0.0-15.0) % Eos % (Auto) 0.0 0.0 (0.0-7.0) % Baso % (Auto) 0.0 0.0 (0.0-1.5) % Neut # (Auto) 9.8 H 10.3 H (1.4-5.7) K/uL Lymph # (Auto) 0.6 0.7 (0.6-2.4) K/uL [place] # (Auto) 0.5 0.6 (0.0-0.8) K/uL Eos # (Auto) 0.0 0.0 (0.0-0.7) K/uL Baso # (Auto) 0.0 0.0 (0.0-0.1) K/uL Nucleated RBC % 0.0 0.0 /100WBC Nucleated RBCs # 0 0 K/uL Sodium 138 (136-145) mmol/L Potassium 3.4 L (3.5-5.1) mmol/L Chloride 101 (98-107) mmol/L Carbon Dioxide 28.2 (21.0-32.0) mmol/L BUN 27 H (7.0-18.0) mg/dL Creatinine 0.9 (0.6-1.0) mg/dL Est Cr Clr Drug Dosing 67.87 mL/min Estimated GFR (MDRD) > 60.0 ml/min Glucose 142 H (74-106) mg/dL Calcium 8.6 (8.5-10.1) mg/dL ALLEN Results - Last 24 hrs: Microbiology 06/17/21 11:30 Aerobic Blood Culture - Preliminary Blood - Venous - Lab Draw NO GROWTH AFTER 1 DAY Anaerobic Blood Culture - Final 06/17/21 11:25 Aerobic Blood Culture - Preliminary Blood - Venous NO GROWTH AFTER 1 DAY Anaerobic Blood Culture - Preliminary NO GROWTH AFTER 1 DAY Med Orders - Current: Current Medications Acetaminophen (Acetaminophen 325 Mg Tab) 650 mg PO Q4H PRN PRN Reason: Pain (Mild 1-3)/fever Albuterol/Ipratropium (Albuterol/Ipratropium 3.0-0.5 Mg/3 Ml Neb Soln) 3 ml NEB Q4HRRT [facility] Last Admin: 06/19/21 10:17 Dose: 3 ml Documented by: Atorvastatin Calcium (Atorvastatin 40 Mg Tab) 40 mg PO BEDTIME [facility] Last Admin: 06/18/21 20:59 Dose: 40 mg Documented by: Enoxaparin Sodium (Enoxaparin 40 Mg/0.4 Ml Syringe) 40 mg SUBCUT BID [facility] Last Admin: 06/19/21 10:33 Dose: 40 mg Documented by: Escitalopram Oxalate (Escitalopram 10 Mg Tab) 20 mg PO DAILY [facility] Last Admin: 06/19/21 08:50 Dose: 20 mg Documented by: Guaifenesin/Dextromethorphan (Guaifenesin/Dextromethorphan 100-10 Mg/5 Ml Soln 10 Ml Cup) 10 ml PO Q4H PRN PRN Reason: Cough Hydrochlorothiazide (Hydrochlorothiazide 25 Mg Tab) 25 mg PO DAILY [facility] Last Admin: 06/19/21 08:50 Dose: 25 mg Documented by: Pantoprazole Sodium 40 mg/ (Sodium Chloride) 10 mls @ 300 mls/hr IV DAILY [facility] Last Admin: 06/19/21 08:44 Dose: 300 mls/hr Documented by: Irbesartan (Irbesartan 150 Mg Tab) 150 mg PO DAILY [facility] Last Admin: 06/19/21 08:50 Dose: 150 mg Documented by: Methylprednisolone Sodium Succinate (Methylprednisolone Sodium Succinate 40 Mg/1 Ml Sdv) 40 mg IVPUSH Q8H [facility] Last Admin: 06/19/21 10:33 Dose: 40 mg Documented by: Montelukast Sodium (Montelukast 10 Mg Tab) 10 mg PO BEDTIME [facility] Last Admin: 06/18/21 21:00 Dose: 10 mg Documented by: Ondansetron HCl (Ondansetron 4 Mg/2 Ml Sdv) 4 mg IVPUSH Q4H PRN PRN Reason: Nausea/Vomiting Sodium Chloride (Sodium Chloride 0.9% 2.5 Ml Syringe) 2.5 ml FLUSH ASDIRECTED PRN PRN Reason: Keep Vein Open Last Admin: 06/17/21 11:07 Dose: 2.5 ml Documented by: Sodium Chloride (Sodium Chloride 0.9% 10 Ml Syringe) 10 ml FLUSH ASDIRECTED PRN PRN Reason: Keep Vein Open Last Admin: 06/17/21 11:07 Dose: 10 ml Documented by: Discontinued Medications Albuterol/Ipratropium (Albuterol/Ipratropium 3.0-0.5 Mg/3 Ml Neb Soln) 3 ml NEB ONETIME ONE Stop: 06/17/21 10:45 Last Admin: 06/17/21 11:01 Dose: Not Given Documented by: Albuterol/Ipratropium (Albuterol/Ipratropium 3.0-0.5 Mg/3 Ml Neb Soln) 3 ml NEB ONETIME ONE Stop: 06/17/21 10:48 Last Admin: 06/17/21 11:07 Dose: 3 ml Documented by: Albuterol/Ipratropium (Albuterol/Ipratropium 3.0-0.5 Mg/3 Ml Neb Soln) 3 ml NEB ONETIME ONE Stop: 06/17/21 10:48 Last Admin: 06/17/21 11:07 Dose: 3 ml Documented by: Albuterol/Ipratropium (Albuterol/Ipratropium 3.0-0.5 Mg/3 Ml Neb Soln) 3 ml NEB ONETIME ONE Stop: 06/17/21 10:48 Last Admin: 06/17/21 11:07 Dose: 3 ml Documented by: Albuterol/Ipratropium (Albuterol/Ipratropium 3.0-0.5 Mg/3 Ml Neb Soln) 3 ml NEB ONETIME ONE Stop: 06/17/21 14:50 Last Admin: 06/17/21 15:15 Dose: 3 ml Documented by: Dexamethasone (Dexamethasone 10 Mg/Ml Sdv) 10 mg IVPUSH ONETIME ONE Stop: 06/17/21 11:07 Last Admin: 06/17/21 11:22 Dose: 10 mg Documented by: Enoxaparin Sodium (Enoxaparin 40 Mg/0.4 Ml Syringe) 40 mg SUBCUT Q24H ROBIN Magnesium Sulfate 2 gm/ Premix 50 mls @ 50 mls/hr IV ONETIME ONE Stop: 06/17/21 12:44 Last Admin: 06/17/21 11:40 Dose: 50 mls/hr Documented by: Iopamidol (Iopamidol 755 Mg/Ml 500 Ml Multipack Bottle) 100 ml IVPUSH ONETIME STA Stop: 06/17/21 15:06 Last Admin: 06/17/21 15:06 Dose: 100 ml Documented by: Potassium Chloride (Potassium Chloride 20 Meq Tab.Er) 40 meq PO ONETIME ONE Stop: 06/18/21 11:56 Last Admin: 06/18/21 13:42 Dose: 40 meq Documented by:
== END 2021-06-19 12:00 | disposition home or self-care (01) | DRG 133 ==
LOC: MW.ED 10:36 → MW.MS 15:58
PROVIDERS: ADMIT Student in an Organized Health Care Education/Training Program; ATTEND Student in an Organized Health Care Education/Training Program
DX: J96.01 Acute respiratory failure with hypoxia (principal); J45.901 Unspecified asthma with (acute) exacerbation; I10 Essential (primary) hypertension; E66.9 Obesity, unspecified; Z20.822 Contact with and (suspected) exposure to COVID-19; F41.9 Anxiety disorder, unspecified; F32.9 Major depressive disorder, single episode, unspecified; Z98.84 Bariatric surgery status; Z79.52 Long term (current) use of systemic steroids; Z79.899 Other long term (current) drug therapy; Z91.018 Allergy to other foods; Z88.6 Allergy status to analgesic agent; Z87.891 Personal history of nicotine dependence; Z68.44 Body mass index [BMI] 60.0-69.9, adult
CPT/HCPCS: 36415; 36600; 71275; 71275-26; 80048; 80053; 80061; 82803; 83605; 83690; 84443; 84484; 85025; 85379; 87040; 87804; 93005; 94640; 96365; 96375; 99285-25; A9270-GY; C9113; J1100; J1650; J2920; J3475; J7620-GY; Q9967; U0002